=== PATIENT | female | born 1970 | race Caucasian/White ===

== ENCOUNTER → 2016-11-04 | Outpatient (CLI) | payer OTHER ==
--- NOTE | 2016-11-04 10:50 | KCIC ---
EXAM: ABDOMINAL ULTRASOUND. HISTORY: Abdominal mass/hernia. Swelling. COMPARISON: None. FINDINGS: Sonographic evaluation of the abdomen was performed. At the site of concern in the midline, there appears to be a fat-containing hernia. Its neck measures approximately 1.8 cm. No bowel loops were clearly included during the study. Hyperechogenicity of the hepatic parenchyma is consistent with diffuse hepatic steatosis. This lowers sensitivity for focal lesions. Done are seen. The liver is at least mildly enlarged. The spleen measures 10.5 cm and contains calcified granulomas. The gallbladder is surgically absent. There is no sonographic Giles sign. The common duct measures 5 mm. The visualized portions of the head of the pancreas reveal no abnormality. The right kidney measures 12.0 cm. Cortical thickness and echogenicity are preserved. There is no hydronephrosis. The left kidney measures 11.5 cm. Cortical thickness and echogenicity are preserved. There is no hydronephrosis. The visualized portions of the abdominal aorta and inferior vena cava are grossly patent and normal in caliber. IMPRESSION: 1. Fat-containing hernia in the midline upper abdomen. No bowel loops are clearly included during this study. 2. Hepatomegaly and diffuse hepatic steatosis. Electronically signed by: Zulma Abbasi MD (11/04/2016 10:47 AM) [id number]
== END | disposition home or self-care (01) ==
LOC: KCIC US 08:08
PROVIDERS: ATTEND Family Medicine
DX: K46.9 Unspecified abdominal hernia without obstruction or gangrene (principal); R19.00 Intra-abdominal and pelvic swelling, mass and lump, unspecified site; K76.0 Fatty (change of) liver, not elsewhere classified; H53.9 Unspecified visual disturbance; R16.0 Hepatomegaly, not elsewhere classified
CPT/HCPCS: 76700

== ENCOUNTER 2017-02-15 11:54 | Observation (INO) | payer OTHER ==
[~2017-02-15] VITALS: Ht 160 cm; Wt 117.9 kg
[2017-02-15] VITALS (8 sets, daily range): BP systolic 99–124; BP diastolic 51–72
[~2017-02-15 11:54] MED LIST: BUPIVACAINE-EPI 0.25%-1:200000 MPF 30 ML VIAL. ONE; IBUP-1060 PO; IV RINGERS,LACTATED 1000ML 1,000 ML IV SCH; LIDOCAINE 1% PF 2 ML VIAL. ID PRN; ONDANSETRON PF 4 MG/2 ML VIAL. IV PRN; PROCHLORPERAZINE 10 MG/2 ML VIAL. IV PRN; fentaNYL PF VIAL 100 MCG/2 ML VIAL IV PRN
--- NOTE | 2017-02-15 12:42 | PDOC1 ---
History and Physical Date of Admission Date of Admission DATE: 02/15/17 TIME: 12:39 Identification/Chief Complaint Chief Complaint Abdominal bulge with pain Problems: Source Source: Patient History of Present Illness History of Present Illness 46 yo female with enlarging abdominal bulge with pain, present for several years. U/S showing 3cm abdominal hernia with incarcerated fat Past Medical History Cardiovascular: HTN Endocrine: Hypothyroidism Past Surgical History Past Surgical History: Cholecystectomy, Tubal Ligation, Other (Knee surgery) Family History Family History: Cancer (ovarian), Diabetes, Hypertension Social History Smoke: No ALCOHOL: none Drugs: None Current Medications Current Medications Current Medications Ondansetron HCl (Zofran) 4 mg PRN Q6HRS PRN IV NAUSEA/VOMITING; Start at 07:00; Stop 02/16/17 at 06:59 Fentanyl Citrate (Fentanyl 2ml Vial) 25 mcg PRN Q5MIN PRN IV MILD PAIN; Start 02/15/17 at 07:00; Stop 02/16/17 at 06:59 Fentanyl Citrate (Fentanyl 2ml Vial) 50 mcg PRN Q5MIN PRN IV MODERATE PAIN; Start 02/15/17 at 07:00; Stop 02/16/17 at 06:59 Ringer's Solution 1,000 ml @ 30 mls/hr Q24H IV ; Start 02/15/17 at 07:00; Stop 02/15/17 at 18:59 Lidocaine HCl (Xylocaine-Mpf 1% Vial) 2 ml PRN 1X PRN ID IV START; Start 02/15 at 07:00; Stop 02/16/17 at 06:59 Prochlorperazine Edisylate (Compazine) 5 mg PACU PRN PRN IV NAUSEA, MRX1; Start 02/15/17 at 07:00; Stop 02/16/17 at 06:59 Cefazolin Sodium/ Dextrose 50 ml @ 100 mls/hr 1X PREOP PRN IV PRIOR TO PROCEDURE; Start 02/15/17 at 06:00; Stop 02/15/17 at 18:00 Bupivacaine HCl/ Epinephrine Bitart (Sensorcaine-Epi 0.25%-1:311737 Mpf) 30 ml STK-MED ONCE .ROUTE ; Start 02/15/17 at 05:42; Stop 02/15/17 at 06:42; Status DC Active Scripts Active Reported Ibuprofen 800 Mg Tablet 800 Mg PO PRN Q6HRS PRN Allergies Allergies: Coded Allergies: aspirin (Verified Adverse Reaction, Intermediate, Nausea and Vomiting, ) UPSET STOMACH codeine (Verified Adverse Reaction, Intermediate, Nausea and Vomiting, ) UPSET STOMACH ROS Gastrointestinal: Yes Abdominal Pain Physical Exam General: Alert, Oriented X3, Cooperative, No acute distress HEENT: Atraumatic, PERRLA, EOMI Lungs: Clear to auscultation, Normal air movement Heart: S1S2, RRR, no murmurs Abdomen: Normal bowel sounds, Soft, Other (TTP mid abd) Rectal Exam: not examined Extremities: No edema Skin: No significant lesion Neuro: Normal speech Psych/Mental Status: Mental status NL Vitals Vitals Vital Signs Date Time Temp Pulse Resp B/P (MAP) Pulse Ox O2 Delivery O2 Flow Rate FiO2 02/15/17 12:30 98.5 88 16 132/71 94 Room Air 98.5 VTE Prophylaxis Ordered VTE Prophylaxis Devices: Yes VTE Pharmacological Prophylaxi: Contraindicated Assessment/Plan Assessment/Plan Ventral hernia plan Robotic assisted L/S Ventral hernia repair GOLDEN WILLIS MD Feb 15, 2017 12:42 pm
[2017-02-15] MEDS ORDERED: HYDR12.53 PO (12:47)
[2017-02-15] MEDS ORDERED: LEVO50TA5 PO (12:48)
[2017-02-15] MEDS ORDERED: LIDOCAINE 2% PF Vial for OR 5 ML VIAL. ONE (13:03)
[2017-02-15] MEDS ORDERED: PROPOFOL 20 ML IV ONE ×2 (13:03→14:54)
[2017-02-15] MEDS ORDERED: FAMOTIDINE 20 MG/2 ML VIAL ONE (13:03)
[2017-02-15] MEDS ORDERED: DEXAMETHASONE SOD PHOS 20 MG/5 ML VIAL. ONE (13:03)
[2017-02-15] MEDS ORDERED: ONDANSETRON PF 4 MG/2 ML VIAL. ONE (13:03)
[2017-02-15 13:16] LABS: NEG OBC UR NEG; POS OBC UR POS
[2017-02-15] MEDS ORDERED: MIDAZOLAM HCL/PF 2 MG/2 ML VIAL. ONE (13:22)
[2017-02-15] MEDS ORDERED: NEOSTIGMINE METHYLSULFATE 5 MG/5 ML SYRINGE. ONE (13:22)
[2017-02-15] MEDS ORDERED: fentaNYL PF VIAL 100 MCG/2 ML VIAL ONE ×3 (13:22→14:39)
[2017-02-15] MEDS ORDERED: GLYCOPYRROLATE 1 MG/5 ML VIAL. ONE (13:22)
[2017-02-15] MEDS ORDERED: KETOROLAC 30 MG/ML INJ FOR OR. INJ ONE (13:53)
[2017-02-15] MEDS ORDERED: hydrALAZINE 20 MG/ML VIAL. ONE (14:39)
--- NOTE | 2017-02-15 15:10 | PDOC ---
BRIEF OPERATIVE NOTE Date: Feb 15, 2017 Pre-Op Diagnosis Ventral hernia Post-Op Diagnosis Same Procedure Performed Robotic assisted L/S Ventral Hernia repair with mesh Surgeon Mehul Anesthesia Type: General Blood Loss 10ml Specimens Obtained None Complications None GOLDEN WILLIS MD Feb 15, 2017 3:10 pm
--- NOTE | 2017-02-15 15:11 | DISCH ---
DISCHARGE INSTRUCTIONS Condition on Discharge Condition on Discharge: Stable Activity After Discharge Activity Instructions for Disc: Avoid exertion Other activity instructions: No lifting >20lbs for 2 weeks Diet after Discharge Diet after Discharge: Regular Wound Incision Care Other wound/incision instructi: May shower in 24 hours Contacting the after DC Call your doctor for: If your condition worsens Follow-Up Follow up with: Dr Willis in 2 weeks GOLDEN WILLIS MD Feb 15, 2017 3:11 pm
[2017-02-15] MEDS: fentaNYL PF VIAL 100 MCG/2 ML VIAL IV PRN ×4 (15:29→16:04)
[2017-02-15] MEDS ORDERED: MEPERIDINE PF 25 MG/ML VIAL. IV PRN ×2 (15:45)
[2017-02-15] MEDS ORDERED: MORPHINE SULFATE 2 MG/ML DISP.SYRIN. IV PRN (15:45)
[2017-02-15] MEDS ORDERED: ONDANSETRON PF 4 MG/2 ML VIAL. IV PRN (15:45)
[2017-02-15] MEDS ORDERED: MORPHINE SULFATE 4 MG/ML DISP.SYRIN. IV PRN (15:45)
[2017-02-15] MEDS ORDERED: diphenhydrAMINE 50 MG/ML VIAL IV PRN (15:45)
[2017-02-15] MEDS ORDERED: DEXAMETHASONE SOD PHOS 4 MG/ML VIAL IV PRN (15:45)
[2017-02-15] MEDS ORDERED: fentaNYL PF VIAL 100 MCG/2 ML VIAL IV PRN ×3 (15:45→16:45)
[2017-02-15] MEDS ORDERED: HYDROmorphone 2 MG/ML VIAL IV PRN (15:45)
[2017-02-15] MEDS ORDERED: ALBUTEROL SULFATE 2.5 MG/3 ML NEBU. NEB PRN (15:45)
--- NOTE | 2017-02-15 15:49 | OP ---
DATE OF SURGERY: 02/15/2017 PREOPERATIVE DIAGNOSIS: Ventral hernia, incarcerated. POSTOPERATIVE DIAGNOSIS: Ventral hernia, incarcerated. PROCEDURE: Robotic-assisted laparoscopic ventral hernia repair with mesh. SURGEON: Lorenzo Willis M.D. INDICATIONS: The patient is a 46-year-old female who has had an enlarging bulge in her upper abdomen for the last 10 years, recently becoming more painful. Procedure of robotic-assisted laparoscopic ventral hernia repair was explained to the patient in detail. Risks, benefits were also discussed including bleeding, infection, injury to intra-abdominal contents, possibly sustaining further open operations. Alternatives to this procedure also discussed with the patient who seemed to understand and gave verbal and written consent to have the procedure performed. DESCRIPTION OF PROCEDURE: The patient was taken to the operating room and placed in the supine position. General anesthesia was initiated. Once the patient was asleep and intubated, her abdomen was prepped and draped in usual sterile fashion using ChloraPrep. An area in the left upper quadrant was injected with 0.25% Marcaine with epinephrine. Incision was made with an 11 blade scalpel and a 5 mm Visiport was placed under direct visualization within the abdomen and pneumoperitoneum was created. A 5 mm camera was placed within the 5 mm port and the abdomen was inspected. She had a fairly large ventral hernia superior to the umbilicus with incarcerated omentum. At this point, three 8.5 mm da Joni ports were placed under direct visualization, one in the low left abdomen and one in the left mid abdomen and one in the left upper abdomen. At this point, the da Joni robot was brought in and docked to all the port sites. The surgeon went to the robotic console and using grasper and EndoShears scissors, the incarcerated omentum was reduced from the hernia defect. The hernia defect was then closed with a running V-Loc nonabsorbable suture. Once this was complete, the defect was then covered with a Ventralight ST mesh and mesh was sewn into place with running absorbable V-Loc suture. Once this was complete, the surgeon returned to the operative field. The da Joni robot was undocked. All ports were removed. The pneumoperitoneum was reduced and the incision sites were all closed with 4-0 subcuticular Monocryl. Mastisol, Steri-Strips and Band-Aids were applied as dressings. The patient was awakened, extubated in the operating room, taken to recovery in stable condition. All sponge, instrument counts listed as correct. Estimated blood loss 10 mL. LORENZO WILLIS MD DR: FRANKIE/gabriela JOB#: [id number] / [id number]
[2017-02-15] MEDS ORDERED: IV RINGERS,LACTATED 1000ML 1,000 ML IV SCH (16:00)
--- NOTE | 2017-02-15 16:48 | PDOC2 ---
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 HAd had 100mcg fentanyl to no relief, VS SBP 120./70 HR 80sats ok, she is wake and crying and pointing to bilateral flanks as to where her pain is,. POst op sites look ok, no guarding, We are consulted for post op pain mx Pt had GB sxs some yrs ago,stayed few days, claims post op pain was not an issue. She had GA for the this elective sx Past Medical History Cardiovascular: HTN Endocrine: Hypothyroidism Past Surgical History Past Surgical History: Cholecystectomy, Tubal Ligation, Other (Knee surgery) Family History Family History: Cancer (ovarian), Diabetes, Hypertension Social History No ALCOHOL: none Drugs: None Current Medications Current Medications Current Medications Ondansetron HCl (Zofran) 4 mg PRN Q6HRS PRN IV NAUSEA/VOMITING; Start at 07:00; Stop 02/16/17 at 06:59 Fentanyl Citrate (Fentanyl 2ml Vial) 25 mcg PRN Q5MIN PRN IV MILD PAIN; Start 02/15/17 at 07:00; Stop 02/16/17 at 06:59 Fentanyl Citrate (Fentanyl 2ml Vial) 50 mcg PRN Q5MIN PRN IV MODERATE PAIN Last administered on 02/15/17 16:04; Start 02/15/17 at 07:00; Stop 02/16/17 at 06:59 Ringer's Solution 1,000 ml @ 30 mls/hr Q24H IV Last administered on t 12:40; Start 02/15/17 at 07:00; Stop 02/15/17 at 18:59 Lidocaine HCl (Xylocaine-Mpf 1% Vial) 2 ml PRN 1X PRN ID IV START; Start 02/15 at 07:00; Stop 02/16/17 at 06:59 Prochlorperazine Edisylate (Compazine) 5 mg PACU PRN PRN IV NAUSEA, MRX1 Last administered on 02/15/17t 15:30; Start 02/15/17 at 07:00; Stop 02/16/17 at 06 :59 Cefazolin Sodium/ Dextrose 50 ml @ 100 mls/hr 1X PREOP PRN IV PRIOR TO PROCEDURE; Start 02/15/17 at 06:00; Stop 02/15/17 at 18:00 Bupivacaine HCl/ Epinephrine Bitart (Sensorcaine-Epi 0.25%-1:926366 Mpf) 30 ml STK-MED ONCE .ROUTE Last administered on 02/15/17t 13:57; Start 02/15/17 at 05:42; Stop 02/15/17 at 06:42; Status DC Propofol 20 ml @ As Directed STK-MED ONCE IV ; Start 02/15/17 at 13:03; Stop 02/15/17 at 13:04; Status DC Dexamethasone Sodium Phosphate (Decadron) 20 mg STK-MED ONCE .ROUTE ; Start at 13:03; Stop 02/15/17 at 13:04; Status DC Famotidine (Pepcid) 20 mg STK-MED ONCE .ROUTE ; Start 02/15/17 at 13:03; Stop 02/15/17 at 13:04; Status DC Lidocaine HCl (Lidocaine Pf 2% Vial) 5 ml STK-MED ONCE .ROUTE ; Start 02/15/17 at 13:03; Stop 02/15/17 at 13:04; Status DC Ondansetron HCl (Zofran) 4 mg STK-MED ONCE .ROUTE ; Start 02/15/17 at 13:03; Stop 02/15/17 at 13:04; Status DC Midazolam HCl (Versed) 2 mg STK-MED ONCE .ROUTE ; Start 02/15/17 at 13:22; Stop 02/15/17 at 13:23; Status DC Glycopyrrolate (Robinul) 1 mg STK-MED ONCE .ROUTE ; Start 02/15/17 at 13:22; Stop 02/15/17 at 13:23; Status DC Neostigmine Methylsulfate 5 mg STK-MED ONCE .ROUTE ; Start 02/15/17 at 13:22; Stop 02/15/17 at 13:23; Status DC Fentanyl Citrate (Fentanyl 2ml Vial) 100 mcg STK-MED ONCE .ROUTE ; Start at 13:22; Stop 02/15/17 at 13:23; Status DC Fentanyl Citrate (Fentanyl 2ml Vial) 100 mcg STK-MED ONCE .ROUTE ; Start at 13:53; Stop 02/15/17 at 13:54; Status DC Ketorolac Tromethamine (Toradol For Or Only) 30 mg STK-MED ONCE INJ ; Start at 13:53; Stop 02/15/17 at 13:54; Status DC Hydralazine HCl (Apresoline Inj) 20 mg STK-MED ONCE .ROUTE ; Start 02/15/17 at 14:39; Stop 02/15/17 at 14:40; Status DC Fentanyl Citrate (Fentanyl 2ml Vial) 100 mcg STK-MED ONCE .ROUTE ; Start at 14:39; Stop 02/15/17 at 14:40; Status DC Propofol 20 ml @ As Directed STK-MED ONCE IV ; Start 02/15/17 at 14:54; Stop 02/15/17 at 14:55; Status DC Ringer's Solution 1,000 ml @ 125 mls/hr Q8H IV ; Start 02/15/17 at 16:00; Stop 02/15/17 at 23:59 Fentanyl Citrate (Fentanyl 2ml Vial) 25 mcg PRN Q5MIN PRN IV Acute Pain; Start 02/15/17 at 15:45; Stop 02/16/17 at 15:44 Fentanyl Citrate (Fentanyl 2ml Vial) 50 mcg PRN Q5MIN PRN IV Acute Pain; Start 02/15/17 at 15:45; Stop 02/16/17 at 15:44 Morphine Sulfate 2 mg PRN Q10MIN PRN IV Mild Pain; Start 02/15/17 at 15:45; Stop 02/16/17 at 15:44 Morphine Sulfate 4 mg PRN Q10MIN PRN IV Moderate Pain; Start 02/15/17 at 15:45 ; Stop 02/16/17 at 15:44 Ondansetron HCl (Zofran) 4 mg PRN Q6HRS PRN IV Nausea, 1st Choice; Start 02/15 at 15:45; Stop 02/16/17 at 15:44 Diphenhydramine HCl (Benadryl) 12.5 mg PRN Q2HR PRN IV ITCHING; Start at 15:45; Stop 02/16/17 at 15:44 Albuterol Sulfate (Ventolin Neb Soln) 2.5 mg PRN 1X PRN NEB Shortness of Breath , Wheezing; Start 02/15/17 at 15:45; Stop 02/16/17 at 15:44 Dexamethasone Sodium Phosphate (Decadron) 8 mg 1X PRN PRN IV 3RD CHOICE FOR NAUSEA; Start 02/15/17 at 15:45; Stop 02/16/17 at 15:44 Meperidine HCl (Demerol) 10 mg 1X PERIOP PRN IV SHIVERING; Start 02/15/17 at 15:45; Stop 02/15/17 at 23:00 Meperidine HCl (Demerol) 15 mg 1X PERIOP PRN IV SHIVERING; Start 02/15/17 at 15:45; Stop 02/15/17 at 23:00 Hydromorphone HCl (Dilaudid) 0.5 mg PRN Q10MIN PRN IV PAIN; Start 02/15/17 at 15:45; Stop 02/15/17 at 23:59 Active Scripts Active Reported Levothyroxine Sodium 50 Mcg Tablet 1 Tab PO DAILY Hydrochlorothiazide Capsule (Hydrochlorothiazide) 12.5 Mg Capsule 1 Cap PO DAILY Ibuprofen 800 Mg Tablet 800 Mg PO PRN Q6HRS PRN Allergies Allergies: Coded Allergies: aspirin (Verified Adverse Reaction, Intermediate, Nausea and Vomiting, ) UPSET STOMACH codeine (Verified Adverse Reaction, Intermediate, Nausea and Vomiting, ) UPSET STOMACH ROS General: No: Chills, Night Sweats, Fatigue, Malaise, Appetite, Other PSYCHOLOGICAL ROS: No: Anxiety, Behavioral Disorder, Concentration difficultie , Decreased libido, Depression, Disorientation, Hallucinations, Hostility, Irritablity, Memory difficulties, Mood Swings, Obsessive thoughts, Physical abuse, Sexual abuse, Sleep disturbances, Suicidal ideation, Other Eyes: No Blurry vision, No Decreased vision, No Double vision, No Dry eyes, No Excessive tearing, No Eye Pain, No Itchy Eyes, No Loss of vision, No Photophobia , No Scotomata, No Uses contacts, No Uses glasses, No Other HEENT: No: Heacaches, Visual Changes, Hearing change, Nasal congestion, Nasal discharge, Oral lesions, Sinus pain, Sore Throat, Epistaxis, Sneezing, Snoring, Tinnitus, Vertigo, Vocal changes, Other ALLERGY AND IMMUNOLOGY: No: Hives, Insect Bite Sensitivity, Itchy/Watery Eyes, Nasal Congestion, Post Nasal Drip, Seasonal Allergies, Other Hematological and Lymphatic: No: Bleeding Problems, Blood Clots, Blood Transfusions, Brusing, Night Sweats, Pallor, Swollen Lymph Nodes, Other Breast: No New/Changing Breast Lumps, No Nipple changes, No Nipple discharge, No Other Respiratory: No: Cough, Hemoptysis, Orthopnea, Pleuritic Pain, Shortness of breath, SOB with excertion, Sputum Changes, Stridor, Tachypnea, Wheezing, Other Cardiovascular: No Chest Pain, No Palpitations, No Orthopnea, No Paroxysmal Noc. Dyspnea, No Edema, No Lt Headedness, No Other Gastrointestinal: Yes Abdominal Pain Genitourinary: No Dysuria, No Frequency, No Incontinence, No Hematuria, No Retention, No Discharge, No Urgency, No Pain, No Flank Pain, No Other, No , No , No , No , No , No , No Musculoskeletal: No Gait Disturbance, No Joint Pain, No Joint Stiffness, No Joint Swelling, No Muscle Pain, No Muscular Weakness, No Pain In:, No Swelling In:, No Other Neurological: No Behavorial Changes, No Bowel/Bladder ControlChng, No Confusion , No Dizziness, No Gait Disturbance, No Headaches, No Impaired Coord/balance, No Memory Loss, No Numbness/Tingling, No Seizures, No Speech Problems, No Tremors, No Visual Changes, No Weakness, No Other Skin: No Dry Skin, No Eczema, No Hair Changes, No Lumps, No Mole Changes, No Mottling, No Nail Changes, No Pruritus, No Rash, No Skin Lesion Changes, No Other, No Acne Physical Exam General: Alert, Oriented X3, Cooperative, No acute distress, Other (crying in pain) HEENT: PERRLA, Mucous membr. moist/pink Lungs: Clear to auscultation, Normal air movement Heart: Regular rate, Normal S1, Normal S2, No murmurs Abdomen: Soft, Other (post op dressing dry, ok) Extremities: No clubbing, No cyanosis, No edema, Normal pulses, No tenderness/ swelling Skin: No rashes, No breakdown Neuro: Normal gait, Normal speech, Normal tone, Sensation intact, Reflexes 2+ Psych/Mental Status: Mental status NL, Mood NL Vitals VITALS Vital Signs Date Time Temp Pulse Resp B/P (MAP) Pulse Ox O2 Delivery O2 Flow Rate FiO2 02/15/17 16:19 94 16 123/65 96 Nasal Cannula 2 02/15/17 15:19 98.3 98.3 Labs Labs Laboratory Tests Test 02/15/17 12:00 Urine Test Negative (NEG) Laboratory Tests Test 02/15/17 12:00 Urine Test Negative (NEG) Assessment/Plan Assessment/Plan 1. S/p lap ventral hernia repair with mesh (02/15) 2. Post op pain 3. Morbid Obesity BMI 45 4. HTN controlled 5. 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 RORO HERRERA MD Feb 15, 2017 16:48
[2017-02-15] MEDS: MORPHINE SULFATE 4 MG/ML DISP.SYRIN. IV PRN ×2 (19:24→22:28)
[2017-02-15] MEDS ORDERED: IBUPROFEN 800 MG TABLET. PO PRN (23:00)
[2017-02-16] MEDS: MORPHINE SULFATE 4 MG/ML DISP.SYRIN. IV PRN ×2 (01:49→08:34)
[2017-02-16 03:18] VITALS: BP 99/58
[2017-02-16 07:00] VITALS: BP 111/67
[2017-02-16] MEDS ORDERED: LEVOTHYROXINE 50 MCG TABLET PO SCH (07:00)
[2017-02-16] MEDS ORDERED: hydroCHLOROthiazide 12.5 MG CAPSULE PO SCH (09:00)
[2017-02-16 11:00] VITALS: BP 107/48
--- NOTE | 2017-02-16 12:18 | PDOC ---
PROGRESS NOTES Chief Complaint Chief Complaint Abdominal bulge with pain S/P ventral hernia repair Hepatomegaly with diffuse steatosis History of Present Illness History of Present Illness 46 y/o F presented to ED yesterday with abdominal bulge and pain. A 3 cm hernia with incarcerated fat was identified via U/S in the supraumbilical region. Imaging also indicated hepatomegaly with diffuse hepatic steatosis. Pt underwent subsequent robot assisted L/S ventral hernia repair later that afternoon. Post-op course was complicated by pain in the in the abdomen and flanks bilaterally. Pt states pain sx's have improved this morning; is feeling some "grogginess" presently secondary to pain medication. Vitals Vitals Vital Signs Date Time Temp Pulse Resp B/P (MAP) Pulse Ox O2 Delivery O2 Flow Rate FiO2 02/16/17 11:00 98.6 102 14 107/48 (67) 90 Nasal Cannula 2.5 98.6 Physical Exam General: Alert, Oriented X3, Cooperative, No acute distress, Other (crying in pain) Heart: Regular rate, Normal S1, Normal S2, No murmurs Abdomen: Soft, Other (post op dressing dry, ok) Extremities: No clubbing, No cyanosis, No edema, Normal pulses, No tenderness/ swelling Skin: No rashes, No breakdown Review of Systems Review of Systems PAtient was seen bedside on surgical floor. Appears NAD, and AOCx3. Denies change in appetite; tolerating oral intake without a problem. Wound appears to be healing well, CDI dressing. Abdominal pain present but improving. No jaundice. No ascites. No JVD. Assessment and Plan Assessmemt and Plan Abdominal bulge with pain S/P ventral hernia repair Hepatomegaly with diffuse steatosis Plan: Continue pain meds Continue home meds Continue wound care OP sleep study Ok to d/c from IM standpoint Problems: Comment Review of Relevant I have reviewed the following items hernandez (where applicable) has been applied. Labs Laboratory Tests Test 02/15/17 12:00 Urine Test Negative (NEG) Medications Current Medications Ondansetron HCl (Zofran) 4 mg PRN Q6HRS PRN IV NAUSEA/VOMITING; Start at 07:00; Stop 02/15/17 at 18:39; Status DC Fentanyl Citrate (Fentanyl 2ml Vial) 25 mcg PRN Q5MIN PRN IV MILD PAIN; Start 02/15/17 at 07:00; Stop 02/15/17 at 18:37; Status DC Fentanyl Citrate (Fentanyl 2ml Vial) 50 mcg PRN Q5MIN PRN IV MODERATE PAIN Last administered on 02/15/17 16:04; Start 02/15/17 at 07:00; Stop 02/15/17 at 18:37; Status DC Ringer's Solution 1,000 ml @ 30 mls/hr Q24H IV Last administered on 12:40; Start 02/15/17 at 07:00; Stop 02/15/17 at 18:37; Status DC Lidocaine HCl (Xylocaine-Mpf 1% Vial) 2 ml PRN 1X PRN ID IV START; Start 02/15 at 07:00; Stop 02/15/17 at 18:37; Status DC Prochlorperazine Edisylate (Compazine) 5 mg PACU PRN PRN IV NAUSEA, MRX1 Last administered on 02/15/17 15:30; Start 02/15/17 at 07:00; Stop 02/15/17 at 18 :37; Status DC Cefazolin Sodium/ Dextrose 50 ml @ 100 mls/hr 1X PREOP PRN IV PRIOR TO PROCEDURE; Start 02/15/17 at 06:00; Stop 02/15/17 at 18:00; Status DC Bupivacaine HCl/ Epinephrine Bitart (Sensorcaine-Epi 0.25%-1:[id number] Mpf) 30 ml STK-MED ONCE .ROUTE Last administered on 02/15/17 13:57; Start 02/15/17 at 05:42; Stop 02/15/17 at 18:37; Status DC Propofol 20 ml @ As Directed STK-MED ONCE IV ; Start 02/15/17 at 13:03; Stop 02/15/17 at 18:37; Status DC Dexamethasone Sodium Phosphate (Decadron) 20 mg STK-MED ONCE .ROUTE ; Start at 13:03; Stop 02/15/17 at 18:37; Status DC Famotidine (Pepcid) 20 mg STK-MED ONCE .ROUTE ; Start 02/15/17 at 13:03; Stop 02/15/17 at 18:37; Status DC Lidocaine HCl (Lidocaine Pf 2% Vial) 5 ml STK-MED ONCE .ROUTE ; Start 02/15/17 at 13:03; Stop 02/15/17 at 18:37; Status DC Ondansetron HCl (Zofran) 4 mg STK-MED ONCE .ROUTE ; Start 02/15/17 at 13:03; Stop 02/15/17 at 18:37; Status DC Midazolam HCl (Versed) 2 mg STK-MED ONCE .ROUTE ; Start 02/15/17 at 13:22; Stop 02/15/17 at 18:37; Status DC Glycopyrrolate (Robinul) 1 mg STK-MED ONCE .ROUTE ; Start 02/15/17 at 13:22; Stop 02/15/17 at 18:37; Status DC Neostigmine Methylsulfate 5 mg STK-MED ONCE .ROUTE ; Start 02/15/17 at 13:22; Stop 02/15/17 at 18:37; Status DC Fentanyl Citrate (Fentanyl 2ml Vial) 100 mcg STK-MED ONCE .ROUTE ; Start at 13:22; Stop 02/15/17 at 18:37; Status DC Fentanyl Citrate (Fentanyl 2ml Vial) 100 mcg STK-MED ONCE .ROUTE ; Start at 13:53; Stop 02/15/17 at 18:37; Status DC Ketorolac Tromethamine (Toradol For Or Only) 30 mg STK-MED ONCE INJ ; Start at 13:53; Stop 02/15/17 at 18:37; Status DC Hydralazine HCl (Apresoline Inj) 20 mg STK-MED ONCE .ROUTE ; Start 02/15/17 at 14:39; Stop 02/15/17 at 18:37; Status DC Fentanyl Citrate (Fentanyl 2ml Vial) 100 mcg STK-MED ONCE .ROUTE ; Start at 14:39; Stop 02/15/17 at 18:37; Status DC Propofol 20 ml @ As Directed STK-MED ONCE IV ; Start 02/15/17 at 14:54; Stop 02/15/17 at 18:37; Status DC Ringer's Solution 1,000 ml @ 125 mls/hr Q8H IV ; Start 02/15/17 at 16:00; Stop 02/15/17 at 18:37; Status DC Fentanyl Citrate (Fentanyl 2ml Vial) 25 mcg PRN Q5MIN PRN IV Acute Pain; Start 02/15/17 at 15:45; Stop 02/15/17 at 18:37; Status DC Fentanyl Citrate (Fentanyl 2ml Vial) 50 mcg PRN Q5MIN PRN IV Acute Pain; Start 02/15/17 at 15:45; Stop 02/15/17 at 18:37; Status DC Morphine Sulfate 2 mg PRN Q10MIN PRN IV Mild Pain; Start 02/15/17 at 15:45; Stop 02/15/17 at 18:37; Status DC Morphine Sulfate 4 mg PRN Q10MIN PRN IV Moderate Pain; Start 02/15/17 at 15:45 ; Stop 02/15/17 at 18:37; Status DC Ondansetron HCl (Zofran) 4 mg PRN Q6HRS PRN IV Nausea, 1st Choice; Start 02/15 at 15:45; Stop 02/15/17 at 18:37; Status DC Diphenhydramine HCl (Benadryl) 12.5 mg PRN Q2HR PRN IV ITCHING; Start at 15:45; Stop 02/15/17 at 18:39; Status DC Albuterol Sulfate (Ventolin Neb Soln) 2.5 mg PRN 1X PRN NEB Shortness of Breath , Wheezing; Start 02/15/17 at 15:45; Stop 02/15/17 at 18:37; Status DC Dexamethasone Sodium Phosphate (Decadron) 8 mg 1X PRN PRN IV 3RD CHOICE FOR NAUSEA; Start 02/15/17 at 15:45; Stop 02/15/17 at 18:37; Status DC Meperidine HCl (Demerol) 10 mg 1X PERIOP PRN IV SHIVERING; Start 02/15/17 at 15:45; Stop 02/15/17 at 18:37; Status DC Meperidine HCl (Demerol) 15 mg 1X PERIOP PRN IV SHIVERING; Start 02/15/17 at 15:45; Stop 02/15/17 at 18:37; Status DC Hydromorphone HCl (Dilaudid) 0.5 mg PRN Q10MIN PRN IV PAIN; Start 02/15/17 at 15:45; Stop 02/15/17 at 18:37; Status DC Fentanyl Citrate (Fentanyl 2ml Vial) 50 mcg PRN Q2HR PRN IV PAIN; Start at 16:45 Morphine Sulfate 4 mg PRN Q2HR PRN IV PAIN Last administered on 02/16/17 08: 34; Start 02/15/17 at 16:45 Hydrochlorothiazide (Microzide) 12.5 mg DAILY PO Last administered on 08:33; Start 02/16/17 at 09:00 Levothyroxine Sodium (Synthroid) 50 mcg DAILY07 PO Last administered on 08:33; Start 02/16/17 at 07:00 Ibuprofen (Motrin) 800 mg PRN Q8HRS PRN PO INFLAMMATION; Start 02/15/17 at 23: 00 Active Scripts Active Reported Levothyroxine Sodium 50 Mcg Tablet 1 Tab PO DAILY Hydrochlorothiazide Capsule (Hydrochlorothiazide) 12.5 Mg Capsule 1 Cap PO DAILY Ibuprofen 800 Mg Tablet 800 Mg PO PRN Q6HRS PRN Vitals/I & O Vital Sign - Last 24 Hours 02/15/17 02/15/17 02/15/17 02/15/17 12:30 15:19 15:19 15:29 Temp 98.5 98.3 98.5 98.3 Pulse 88 103 Resp 16 16 20 B/P (MAP) 132/71 139/51 Pulse Ox 94 100 99 O2 Delivery Room Air Mask Simple Mask Simple Mask O2 Flow Rate 10 10 10.0 02/15/17 02/15/17 02/15/17 02/15/17 15:34 15:38 15:40 15:44 Pulse 94 Resp 18 18 B/P (MAP) 121/62 Pulse Ox 98 98 98 O2 Delivery Simple Mask Simple Mask Nasal Cannula Room Air O2 Flow Rate 10 10.0 2.5 02/15/17 02/15/17 02/15/17 02/15/17 15:49 16:04 16:04 16:19 Pulse 96 92 94 Resp 16 16 16 16 B/P (MAP) 130/63 148/65 123/65 Pulse Ox 94 94 94 96 O2 Delivery Nasal Cannula Nasal Cannula Nasal Cannula Nasal Cannula O2 Flow Rate 2.5 2.5 2.5 2 02/15/17 02/15/17 02/15/17 02/15/17 16:34 16:49 17:04 17:40 Temp 97.4 97.4 Pulse 94 90 90 89 Resp 16 16 16 20 B/P (MAP) 125/69 128/64 112/69 117/70 (86) Pulse Ox 96 96 96 95 O2 Delivery Nasal Cannula Nasal Cannula Nasal Cannula Nasal Cannula O2 Flow Rate 2.5 2.5 2 2.5 02/15/17 02/15/17 02/15/17 02/15/17 18:00 18:15 18:30 18:45 Pulse 84 84 83 86 Resp 20 20 20 20 B/P (MAP) 112/71 (85) 112/67 (82) 106/68 (81) 113/71 (85) Pulse Ox 90 89 89 91 O2 Delivery Nasal Cannula Nasal Cannula Nasal Cannula Nasal Cannula O2 Flow Rate 2.5 2.5 2.5 2.5 02/15/17 02/15/17 02/15/17 02/15/17 19:20 19:24 19:55 21:08 Temp 97.5 98.1 97.5 98.1 Pulse 91 94 Resp 18 20 18 B/P (MAP) 124/72 (89) 118/68 (85) Pulse Ox 97 91 97 O2 Delivery Nasal Cannula Nasal Cannula Nasal Cannula Nasal Cannula O2 Flow Rate 2.5 2.0 2.0 02/15/17 02/15/17 02/16/17 02/16/17 22:28 23:18 01:49 02:20 Temp 98.0 98.0 Pulse 99 Resp 20 18 20 20 B/P (MAP) 99/51 (67) Pulse Ox 97 95 95 O2 Delivery Nasal Cannula Nasal Cannula Nasal Cannula O2 Flow Rate 2.0 2.0 2.0 02/16/17 02/16/17 02/16/17 02/16/17 03:18 07:00 08:00 08:34 Temp 98.2 98.3 98.2 98.3 Pulse 92 92 Resp 18 14 B/P (MAP) 99/58 (72) 111/67 (82) Pulse Ox 97 95 O2 Delivery Nasal Cannula Nasal Cannula Nasal Cannula Room Air O2 Flow Rate 2.0 2.5 2.0 2.0 02/16/17 02/16/17 09:04 11:00 Temp 98.6 98.6 Pulse 102 Resp 14 B/P (MAP) 107/48 (67) Pulse Ox 95 90 O2 Delivery Nasal Cannula Nasal Cannula O2 Flow Rate 2.0 2.5 BEKAH URBINA III DO Feb 16, 2017 12:18
--- NOTE | 2017-02-16 12:56 | PDOC3 ---
Discharge Summary Visit Information Date of Admission: Feb 15, 2017 Date of Discharge: Feb 16, 2017 Admitting Diagnosis: Ventral hernia Final Diagnosis Ventral hernia, Brief Hospital Course Allergies Allergies Coded Allergies Type Severity Reaction Last Updated Verified aspirin Adverse Reaction Intermediate Nausea and Vomiting 02/15/17 Yes codeine Adverse Reaction Intermediate Nausea and Vomiting 02/15/17 Yes Vital Signs Vital Signs Date Time Temp Pulse Resp B/P (MAP) Pulse Ox O2 Delivery O2 Flow Rate FiO2 02/16/17 11:00 98.6 102 14 107/48 (67) 90 Nasal Cannula 2.5 98.6 Lab Results Laboratory Tests Test 02/15/17 12:00 Urine Test Negative (NEG) Brief Hospital Course Ms. Winters is a 46 old female underwent robotic assisted laprascopic ventral hernia repair with mesh. She had some hypoxia post op but is doing much better today. She is being D/C home in good condition. Discharge Information Condition at Discharge: Improved Follow Up: Weeks Disposition/Orders: D/C to Home Scheduled Hydrochlorothiazide (Hydrochlorothiazide Capsule ), 1 CAP PO DAILY, (Reported ) Levothyroxine Sodium (Levothyroxine Sodium), 1 TAB PO DAILY, (Reported) Scheduled PRN Ibuprofen (Ibuprofen), 800 MG PO PRN Q6HRS PRN for INFLAMMATION, (Reported) Patient Instructions Patient Instructions No lifting >20lbs for 2 weeks May shower starting today F/U with Dr Willis in 2 weeks GOLDEN WILLIS MD Feb 16, 2017 12:56
[2017-02-16] MEDS ORDERED: oxyCODONE/APAP 5/325 1 TAB TABLET PO ONE ×2 (13:00)
== END 2017-02-16 14:25 | disposition home or self-care (01) ==
LOC: SURG 11:54 → 4 NORTH 16:13
PROVIDERS: ADMIT Surgery; ATTEND Surgery
DX: K43.9 Ventral hernia without obstruction or gangrene (principal); I10 Essential (primary) hypertension; E66.01 Morbid (severe) obesity due to excess calories; E03.9 Hypothyroidism, unspecified; R09.02 Hypoxemia; G89.18 Other acute postprocedural pain; K76.0 Fatty (change of) liver, not elsewhere classified; Z68.42 Body mass index [BMI] 45.0-49.9, adult; Z82.49 Family history of ischemic heart disease and other diseases of the circulatory system; Z83.3 Family history of diabetes mellitus
CPT/HCPCS: 49653; 81025; 96374; 96376; 97161; 97166; C1781; G0378; G0379; G8978; G8979; J0360; J0690; J0780; J1100; J1885; J2250; J2270; J2405; J2704; J2710; J3010; J3490; J7120; S0028; S2900; J2001

== ENCOUNTER 2018-10-24 21:59 | Emergency (ER) | payer MEDICAID, OTHER ==
[~2018-10-24 21:59] MED LIST changes: -BUPIVACAINE-EPI 0.25%-1:200000 MPF 30 ML VIAL. ONE; +HYDR12.575 PO; -IV RINGERS,LACTATED 1000ML 1,000 ML IV SCH; +LEVO50TA5 PO; -LIDOCAINE 1% PF 2 ML VIAL. ID PRN; -ONDANSETRON PF 4 MG/2 ML VIAL. IV PRN; -PROCHLORPERAZINE 10 MG/2 ML VIAL. IV PRN; -fentaNYL PF VIAL 100 MCG/2 ML VIAL IV PRN
[2018-10-24 22:31] VITALS: BP 113/68
== END 2018-10-24 22:33 | disposition left against medical advice (07) ==
LOC: ER 21:59
DX: R19.7 Diarrhea, unspecified (principal); R53.1 Weakness; Z53.21 Procedure and treatment not carried out due to patient leaving prior to being seen by health care provider